=== PATIENT | female | born 2000 | race American Indian/Alaskan Native ===

== ENCOUNTER 2022-03-08 06:30 | Outpatient (CLI) | payer MEDICAID ==
[2022-03-08 08:04] VITALS: BP 115/75
--- NOTE | 2022-03-08 08:08 | Ultrasound Report ---
ULTRASOUND OBSTETRIC COMPLETE INDICATION / CLINICAL INFORMATION: Abdominal pain, Contractions, Gestational Diabetes. Clinical Gestational Age (GA) in weeks, days: 37 weeks 4 days TECHNIQUE: Transabdominal. COMPARISON: None available. FINDINGS: NUMBER: Single PRESENTATION: cephalic PLACENTA: maternal right and free of the os. MATERNAL ADNEXA: No significant abnormality. AMNIOTIC FLUID VOLUME: normal AMNIOTIC FLUID INDEX (JENNIFER) in cm (if measured): 7.6 MEASUREMENTS: - Biparietal Diameter = 8.7 cm = 35 weeks 1 day - Head Circumference = 32.1 cm = 36 weeks 1 day - Abdominal Circumference = 31.3 cm = 35 weeks 1 day - Femur Length = 7.3 cm = 37 weeks 4 days - Estimated Weight (in grams, if calculated): 08/16/2005 - Heart Rate (beats per minute): 142 ADDITIONAL FINDINGS: None. PERCENTILE ESTIMATED WEIGHT (if calculated): 20 AVERAGE ULTRASOUND AGE (AUA) in weeks, days = 36 weeks 0 days IMPRESSION: 1. Single intrauterine in cephalic presentation with AUA of 36 weeks 0 days. Estimated feta l weight of 2806 g. 2. Amniotic fluid index measures 7.6 cm, which is at the lower limits of normal. Signer Name: Santiago Liu MD Signed: 03/08/2022 8:03 AM Workstation Name: [email or web address]
== END 2022-03-08 08:46 | disposition home or self-care (01) ==
LOC: TRG 06:30 → APU 06:34 → TRG 08:46
PROVIDERS: ATTEND Obstetrics & Gynecology Gynecology
DX: Z34.93 Encounter for supervision of normal pregnancy, unspecified, third trimester (principal); Z3A.37 37 weeks gestation of pregnancy
CPT/HCPCS: 59025; 76816; 82962